=== PATIENT | female | born 1995 | race Caucasian/White ===

== ENCOUNTER → 2020-04-23 12:14 | Outpatient (CLI) | payer OTHER, SELFPAY ==
[2020-04-23 12:55] LABS: COVID19 -Nasal RAPID Negative (Negative)
== END ==
PROVIDERS: PCP Nurse Practitioner Family; Visit Provider Physician Assistant
DX: R05 Cough (principal); Z20.822 Contact with and (suspected) exposure to COVID-19
CPT/HCPCS: 87635

== ENCOUNTER → 2020-08-17 09:14 | Outpatient (CLI) | payer OTHER, SELFPAY ==
[2020-08-17 10:31] LABS: Hematocrit 37.1 % (36-46); Hemoglobin 12.1 g/dL (12.0-16.0); Mean Corpuscular HGB Conc 32.7 % (30-36); Mean Corpuscular Hemoglobin 26.6 PG (26-34); Mean Corpuscular Volume 81.4 fL (80-100); Platelet Count 488 X10^3/uL (150-400); Red Blood Cell Count 4.56 X10^6/uL (4.0-5.2); Red Cell Distribution Width 13.5 % (11.6-14.8); White Blood Cell Count 7.8 X10^3/uL (4.5-11.0)
[2020-08-17 10:47] LABS: Alanine Aminotransferase 15 IU/L (<35); Albumin 4.2 g/dL (3.5-5.0); Albumin Globulin Ratio 1.3 (1.0-2.8); Alkaline Phosphatase 77 U/L (38-126); Aspartate Aminotransferase 24 IU/L (14-36); BUN Creatinine Ratio 22.7 (6-22); Bilirubin Total 0.4 mg/dL (0.2-1.3); Blood Urea Nitrogen 10 mg/dL (7-17); Calcium 9.5 mg/dL (8.4-10.2); Carbon Dioxide 26 mmol/L (22-32); Chloride 102 mmol/L (98-107); Cholesterol 160 mg/dL (140-199); Estimated Glomerular Filt Rate > 60.0 mL/min (>60); Globulin 3.3 g/dL (1.7-4.1); Glucose 91 mg/dL (70-100); HDL Cholesterol 55 mg/dL (40-60); HEMOLYSIS < 15 (0-50); LDL Cholesterol Calculated 60 mg/dL (<100); Sodium 137 mmol/L (137-145); Total Protein 7.5 g/dL (6.3-8.2); Triglycerides 226 mg/dL (35-150)
[2020-08-17 11:12] LABS: TSH w/ Reflex to FT4 0.69 uIU/mL (0.47-4.68)
[2020-08-18 17:18] LABS: RBC Morphology Normal Morphology
[2020-08-18 17:19] LABS: Platelet Estimate Increased on smear
== END ==
PROVIDERS: PCP Nurse Practitioner Family; Referring Provider Nurse Practitioner Family; Visit Provider Nurse Practitioner Family
DX: F32.9 Major depressive disorder, single episode, unspecified (principal); F41.9 Anxiety disorder, unspecified; Z00.00 Encounter for general adult medical examination without abnormal findings; Z13.6 Encounter for screening for cardiovascular disorders
CPT/HCPCS: 36415; 80053; 80061; 84443; 85027

== ENCOUNTER 2020-08-22 03:50 | Emergency (ER) | payer OTHER, SELFPAY ==
[2020-08-22 04:01] VITALS: BP 150/96; PULSE 96; RESP 20; TEMP 36.6; O2SAT 99; BMI 40.7
[2020-08-22] MEDS: SODIUM CHLORIDE 0.9% 1,000 ML 1000 ML IV (04:21)
[2020-08-22] MEDS: HYDROMORPHONE 0.5 MG INJ IV (04:21)
[2020-08-22] MEDS: ONDANSETRON 4 MG/2 ML INJ IV (04:22)
--- NOTE | 2020-08-22 04:22 | ED.GENADULT ---
HPI - General Adult General Chief complaint: Abdominal Pain Stated complaint: mid to upper back pain/abdominal pain right side Time Seen by Provider: 08/22/20 04:01 Source: patient and family Mode of arrival: Ambulatory Limitations: no limitations History of Present Illness HPI narrative: 24-year-old woman with a history of depression presents with sharp right upper quadrant abdominal pain that awoke her from sleep at 11:00 p.m. last night. She describes it as tight with a bandlike aspect along the entire lower portion of her chest. She has no midline thoracic tenderness. She is nauseated secondary to the severity of the pain. She describes no fevers or chills notes that her last bowel movement was normal and last night. She describes no headaches no skin changes and states she has had similar episodes of pain never quite like this and always resolves without additional intervention. She also notes that she did eat some ice cream last night and does have a history of lactose intolerance. She has taken ibuprofen and Tylenol to no effect this evening. Related Data Home Medications Medication Instructions Recorded Confirmed drospirenone 3 mg-ethinyl 1 tab PO DAILY 08/17/20 09/01/20 estradiol 0.02 mg tablet hydroxyzine HCl 25 mg tablet 25 mg PO QID PRN 08/17/20 09/01/20 Previous Rx's Medication Instructions Recorded venlafaxine 37.5 mg 37.5 mg PO DAILY #90 cap 08/17/20 capsule,extended release 24 hr cyclobenzaprine 10 mg PO TID PRN #10 tab 08/24/20 hydrocodone-acetaminophen 1 tab PO Q4-6H PRN #14 tab 08/31/20 ondansetron 4 mg PO Q6H PRN #20 tab 08/31/20 Allergies Allergy/AdvReac Type Severity Reaction Status Date / Time No Known Drug Allergies Allergy Verified 09/01/20 13:26 Review of Systems Review of Systems Narrative: Remainder of complete review of systems is otherwise unremarkable except for that included in the HPI. Patient History Medical History Acne (~2014) Anxiety (~2019) Depression (~2018) No active medical problems Plantar warts (~2017) Thrombocytosis Surgical History Anesthesia [place] teeth removed (~03/22/19) Family History Father Chronic back pain Hyperlipidemia Hypertension Mother Hypertension Brother Cerebral palsy Grandmother Colon cancer History of heart disease Hypertension Stroke Grandfather COPD (chronic obstructive pulmonary disease) Grandmother Diabetes mellitus Mental health problem Social History (Updated 09/01/20 @ 13:29 by Cat Earl RN) marital status: unknown household members: family occupational status: employed Smoking Status: Never smoker second hand exposure: Yes alcohol intake: current (1x/week) substance use type: does not use Smoking Status: Never smoker alcohol intake frequency: holidays/special occasions only Substance Use Type: does not use Exam Narrative Exam Narrative: General: Healthy appearing, in moderate distress. Able to give a complete and coherent history. Well-nourished well-developed HEENT: Moist mucous membranes, normal sclera with reactive pupils, Respiratory: Lungs are clear to auscultation, no wheezing no rales no rhonchi. Full and symmetrical air movement Cardiac: Regular rate and rhythm no murmurs no bruits Abdomen: Soft, right upper quadrant tenderness that radiates to the right mid axillary line. No rebound or guarding, good bowel tones, no flank pain Skin: Warm and dry, no rashes Neurologic: Grossly neurologically intact with no obvious asymmetries or abnormalities Extremities: No trauma, well perfused Psych: Cooperative, appropriate insight and affect Initial Vital Signs Initial Vital Signs: Vital Signs Temperature 97.8 F 08/22/20 04:01 Pulse Rate 96 H 08/22/20 04:01 Respiratory Rate 20 08/22/20 04:01 Blood Pressure 150/96 H 08/22/20 04:01 Pulse Oximetry 99 08/22/20 04:01 Course Orders Ordered: Discontinued Medications Hydromorphone HCl (Hydromorphone 0.5 Mg Inj) 0.5 mg IV Q15MIN PRN PRN Reason: Pain, Last Admin: 08/22/20 04:21 Dose: 0.5 mg Documented by: JEFF Sodium Chloride (Normal Saline 0.9%) 1,000 mls @ 1,000 mls/hr IV BOLUS ONE Stop: 08/22/20 05:00 Last Infusion: 08/22/20 05:23 Dose: 0 mls/hr Documented by: Admin: 08/22/20 04:21 Dose: 1,000 mls/hr Documented by: JEFF Ondansetron HCl (Ondansetron 4 Mg/2 Ml Inj) 4 mg IV NOW ONE Stop: 08/22/20 04:02 Last Admin: 08/22/20 04:22 Dose: 4 mg Documented by: JEFF Vital Signs Vital signs: Vital Signs - 8 hr 08/22/20 04:01 Temperature 97.8 F Pulse Rate 96 H Respiratory Rate 20 Blood Pressure 150/96 H Pulse Oximetry 99 Medical Decision Making Lab Data Lab results reviewed: Yes I reviewed the patient's lab results. Result diagrams: 08/22/20 04:15 08/22/20 04:15 Labs: Lab Results 08/22/20 08/22/20 Range/Units 04:15 04:15 WBC 10.7 (4.5-11.0) X10^3/uL RBC 4.59 (4.0-5.2) X10^6/uL Hgb 12.6 (12.0-16.0) g/dL Hct 37.1 (36-46) % MCV 80.8 (80-100) fL MCH 27.5 (26-34) PG MCHC 34.0 (30-36) % RDW 13.3 (11.6-14.8) % Plt Count 496 H (150-400) X10^3/uL Neut % (Auto) 79.8 H (50-75) % Lymph % (Auto) 13.4 L (25-40) % [place] % (Auto) 5.0 (3-14) % Eos % (Auto) 1.0 L (2-4) % Baso % (Auto) 0.8 (0-2) % Neut # (Auto) 8500 H (4451-6886) /uL Lymph # (Auto) 1400 (8992-8589) /uL [place] # (Auto) 500 (0-900) /uL Eos # (Auto) 100 (0-450) /uL Baso # (Auto) 100 (0-100) /uL Sodium 138 (137-145) mmol/L Potassium 4.1 (3.4-5.1) mmol/L Chloride 104 (98-107) mmol/L Carbon Dioxide 23 (22-32) mmol/L BUN 10 (7-17) mg/dL Creatinine 0.47 L (0.52-1.04) mg/dL Estimated GFR > 60.0 (>60) mL/min BUN/Creatinine Ratio 21.3 (6-22) Glucose 111 H (70-100) mg/dL Calcium 9.7 (8.4-10.2) mg/dL Total Bilirubin 0.3 (0.2-1.3) mg/dL AST 20 (14-36) IU/L ALT 18 (<35) IU/L Alkaline Phosphatase 85 (38-126) U/L Total Protein 7.5 (6.3-8.2) g/dL Albumin 4.1 (3.5-5.0) g/dL Globulin 3.4 (1.7-4.1) g/dL Albumin/Globulin Ratio 1.2 (1.0-2.8) Lipase 45 (23-300) U/L Urine Dip Bedside Urine Glucose Negative Bedside Urine Bilirubin - Negative Bedside Urine Ketone - Negative Urine Specific [place] 1.010 Bedside Urine Occult Blood - Negative Bedside Urine pH 7.0 Bedside Urine Protein - Negative Bedside Urine Urobilinogen +/- 1mg Bedside Urine Nitrite - Negative Bedside Urine Leukocytes - Negative Esterase Point of care testing: Urine Dip Bedside Urine Glucose Negative Bedside Urine Bilirubin - Negative Bedside Urine Ketone - Negative Urine Specific [place] 1.010 Bedside Urine Occult Blood - Negative Bedside Urine pH 7.0 Bedside Urine Protein - Negative Bedside Urine Urobilinogen +/- 1mg Bedside Urine Nitrite - Negative Bedside Urine Leukocytes - Negative Esterase Imaging Data Abdominal ultrasound: Radiologist's Impression: Per tech: No cholecystitis or cholelithiasis. She does have a fatty gallbladder but otherwise abdominal ultrasound is unremarkable. [facility] Narrative Medical decision making narrative: 24-year-old woman with recurrent episodes of right upper abdominal pain radiating through to her back worst today. Labs are reassuring she is feeling somewhat better after fluids and Dilaudid and the pain is now localizing only to the right upper quadrant with the back pain resolved. Ultrasound of the abdomen is ordered Ultrasound does not show significant pathology. On re-evaluation pain is somewhat improved. At this point there is no evidence of significant infection, cholecystitis or cholelithiasis. No suggestion for abdominal obstruction, renal pathology. At this point she is safe for home discharge will recommend that she follow-up with her primary care physician and may benefit from outpatient HIDA study to assess gallbladder function overall. Discharge Plan Departure Patient Disposition: Home Clinical Impression: Abdominal pain Qualifiers: Abdominal location: right upper quadrant Qualified Code(s): R10.11 - Right upper quadrant pain Instructions: DI for Acute Abdominal Pain Activity Restrictions/Additional Instructions: Thank you for coming in today Your workup was very reassuring. Your blood work was normal. There is no evidence of acute gallbladder disease or gallstones. Your ultrasound was also reassuring. I am going to send you home with a small course of narcotics to use for the severe abdominal pain when you experience it. I would recommend eating as low fat diet as your able to tolerate. I still suspect that this is your gallbladder that is causing the pain. Your gallbladder helps you digest fat so the less fat you eat, the less your gallbladder has to work. The next step in your workup will be to follow-up with your primary care physician. Your physician may recommend an outpatient HIDA study which is a nuclear medicine study to look at gallbladder function. If you feel that you are getting worse come your developing fever or vomiting or diarrhea please feel free to return to the ER for further evaluation. Prescriptions: No Action hydroxyzine HCl 25 mg tablet 25 mg PO QID PRNRF: 0 drospirenone-ethinyl estradiol [GINA (28)] 3-0.02 mg tablet 1 tab PO DAILY RF: 0 venlafaxine 37.5 mg capsule,extended release 24hr 37.5 mg PO DAILY Qty: 90 RF: 3 ondansetron 4 mg tablet,disintegrating 4 mg PO Q6H PRN (Reason: nausea and vomiting) Qty: 20 RF: 0 hydrocodone-acetaminophen 5-325 mg tablet 1 tab PO Q4-6H PRN (Reason: pain) Qty: 14 RF: 0 cyclobenzaprine 10 mg tablet 10 mg PO TID PRN (Reason: muscle spasm) Qty: 10 RF: 0 Referrals: Julián Mcknight ARNP [Primary Care Provider] - Stand Alone Forms: Work Release Note
[2020-08-22 04:26] LABS: Add Manual Diff / Slide Review NO; Basophils Absolute Auto 100 /uL (0-100); Basophils Percent Auto 0.8 % (0-2); Eosinophils Absolute Auto 100 /uL (0-450); Hematocrit 37.1 % (36-46); Hemoglobin 12.6 g/dL (12.0-16.0); Lymphocytes Absolute Auto 1400 /uL (1100-4500); Lymphocytes Percent Auto 13.4 % (25-40); Mean Corpuscular Hemoglobin 27.5 PG (26-34); Mean Corpuscular Volume 80.8 fL (80-100); Monocytes Absolute Auto 500 /uL (0-900); Neutrophils Absolute Auto 8500 /uL (1500-7000); Neutrophils Percent Auto 79.8 % (50-75); Platelet Count 496 X10^3/uL (150-400); Red Blood Cell Count 4.59 X10^6/uL (4.0-5.2); Red Cell Distribution Width 13.3 % (11.6-14.8); White Blood Cell Count 10.7 X10^3/uL (4.5-11.0)
[2020-08-22 04:31] LABS: Alanine Aminotransferase 18 IU/L (<35); Albumin 4.1 g/dL (3.5-5.0); Albumin Globulin Ratio 1.2 (1.0-2.8); Alkaline Phosphatase 85 U/L (38-126); Aspartate Aminotransferase 20 IU/L (14-36); BUN Creatinine Ratio 21.3 (6-22); Bilirubin Total 0.3 mg/dL (0.2-1.3); Blood Urea Nitrogen 10 mg/dL (7-17); Calcium 9.7 mg/dL (8.4-10.2); Carbon Dioxide 23 mmol/L (22-32); Chloride 104 mmol/L (98-107); Estimated Glomerular Filt Rate > 60.0 mL/min (>60); Globulin 3.4 g/dL (1.7-4.1); Glucose 111 mg/dL (70-100); HEMOLYSIS < 15 (0-50); Lipase 45 U/L (23-300); Potassium 4.1 mmol/L (3.4-5.1); Sodium 138 mmol/L (137-145); Total Protein 7.5 g/dL (6.3-8.2)
--- NOTE | 2020-08-22 05:28 | DI.US.S_ITS ---
PROCEDURE: US ABDOMEN LIMITED INDICATIONS: RUQ PAIN TECHNIQUE: Real-time focused scanning was performed of the abdomen, with image documentation. COMPARISON: None. FINDINGS: Liver is normal in size. Liver is mildly echogenic. No focal hepatic mass lesions. Gallbladder is sonographically normal. No gallstones. No gallbladder wall thickening. Gallbladder wall measures 2.2 millimeters No pericholecystic fluid. No sonographic Wilson sign. Biliary tree is nondilated. Common bile duct measures 6.1 millimeters. Pancreas is sonographically normal. IMPRESSION: 1. No sonographic evidence cholelithiasis or cholecystitis. If there is continued clinical concern for cholecystitis, a nuclear medicine HIDA scan should be considered for further evaluation. 2. Echogenic liver. Finding typically represents fatty infiltration; however, finding is nonspecific and correlation with clinical and laboratory findings is recommended to exclude other etiologies including hepatic cirrhosis. Dictated by: Denisse Harris MD, PhD on 08/22/2020 at 7:15 Approved by: Denisse Harris MD, PhD on 08/22/2020 at 7:17
[2020-08-22 07:41] VITALS: BP 138/82; PULSE 88; RESP 16; O2SAT 98
== END 2020-08-22 07:41 | disposition home or self-care (01) ==
PROVIDERS: Emergency Provider Emergency Medicine; PCP Nurse Practitioner Family
DX: R10.11 Right upper quadrant pain (principal); R11.0 Nausea
CPT/HCPCS: 36415; 76705; 80053; 81003; 83690; 85025; 96361; 96374; 96375; 99284; J1170; J2405

== ENCOUNTER 2020-08-24 14:28 | Emergency (ER) | payer OTHER, SELFPAY ==
[2020-08-24 14:38] VITALS: BP 158/93; PULSE 96; RESP 16; TEMP 37.1; O2SAT 98; BMI 41.5
[2020-08-24 15:40] LABS: Add Manual Diff / Slide Review NO; Basophils Absolute Auto 100 /uL (0-100); Basophils Percent Auto 0.9 % (0-2); Eosinophils Absolute Auto 200 /uL (0-450); Eosinophils Percent Auto 1.3 % (2-4); Hematocrit 37.2 % (36-46); Hemoglobin 12.6 g/dL (12.0-16.0); Lymphocytes Absolute Auto 2200 /uL (1100-4500); Mean Corpuscular HGB Conc 33.9 % (30-36); Mean Corpuscular Hemoglobin 27.3 PG (26-34); Mean Corpuscular Volume 80.6 fL (80-100); Monocytes Absolute Auto 600 /uL (0-900); Monocytes Percent Auto 5.1 % (3-14); Neutrophils Absolute Auto 8600 /uL (1500-7000); Neutrophils Percent Auto 73.7 % (50-75); Platelet Count 503 X10^3/uL (150-400); Red Blood Cell Count 4.62 X10^6/uL (4.0-5.2); Red Cell Distribution Width 13.1 % (11.6-14.8); White Blood Cell Count 11.7 X10^3/uL (4.5-11.0)
[2020-08-24 16:11] LABS: Alanine Aminotransferase 16 IU/L (<35); Albumin 4.3 g/dL (3.5-5.0); Albumin Globulin Ratio 1.3 (1.0-2.8); Alkaline Phosphatase 73 U/L (38-126); Aspartate Aminotransferase 32 IU/L (14-36); BUN Creatinine Ratio 21.1 (6-22); Bilirubin Total 0.6 mg/dL (0.2-1.3); Blood Urea Nitrogen 8 mg/dL (7-17); Calcium 9.6 mg/dL (8.4-10.2); Carbon Dioxide 25 mmol/L (22-32); Chloride 101 mmol/L (98-107); Estimated Glomerular Filt Rate > 60.0 mL/min (>60); Globulin 3.4 g/dL (1.7-4.1); Glucose 137 mg/dL (70-100); HEMOLYSIS 33 (0-50); Lipase 39 U/L (23-300); Potassium 3.7 mmol/L (3.4-5.1); Sodium 136 mmol/L (137-145); Total Protein 7.7 g/dL (6.3-8.2)
[2020-08-24] MEDS: SODIUM CHLORIDE 0.9% 1,000 ML 1000 ML IV (16:48)
[2020-08-24] MEDS: ONDANSETRON 4 MG/2 ML INJ IV (16:48)
[2020-08-24] MEDS: MORPHINE 4 MG/ML INJ IV (16:48)
--- NOTE | 2020-08-24 17:03 | ED.GENADULT ---
HPI - General Adult General Chief complaint: Abdominal Pain Stated complaint: Dizzy, Back Pain, Sent From PCP Time Seen by Provider: 08/24/20 16:45 Source: patient Mode of arrival: Wheelchair Limitations: no limitations History of Present Illness HPI narrative: Patient is a 24-year-old female was sent from her primary doctor's office for evaluation back pain and abdominal pain feeling dizzy. She was seen here in the emergency department a couple days ago for abdominal discomfort. She had a workup during that time to include labs and an ultrasound which showed a normal gallbladder. She states that her abdominal discomfort that brought her into the emergency department that day has completely resolved however she has right-sided back discomfort. She states she becomes dizzy when she gets the pain. It is worse to touch. Related Data Home Medications Medication Instructions Recorded Confirmed drospirenone 3 mg-ethinyl 1 tab PO DAILY 08/17/20 08/24/20 estradiol 0.02 mg tablet hydroxyzine HCl 25 mg tablet 25 mg PO QID PRN 08/17/20 08/24/20 Previous Rx's Medication Instructions Recorded venlafaxine 37.5 mg 37.5 mg PO DAILY #90 cap 08/17/20 capsule,extended release 24 hr cyclobenzaprine 10 mg PO TID PRN #10 tab 08/24/20 Allergies Allergy/AdvReac Type Severity Reaction Status Date / Time No Known Drug Allergies Allergy Verified 08/24/20 14:40 Review of Systems Constitutional Constitutional: Denies fever(s) ENT Ears, Nose, Mouth, and Throat: Reports dizziness Cardiovascular Cardiovascular: Reports system reviewed and no additional complaints, except as documented Respiratory Respiratory: Reports system reviewed and no additional complaints, except as documented Gastrointestinal Gastrointestinal: Denies abdominal pain Genitourinary Genitourinary: Reports system reviewed and no additional complaints, except as documented Musculoskeletal Musculoskeletal: Reports back pain Integumentary/Breasts Skin/Breast: Denies rash Neurologic Neurologic: Reports dizziness Psychiatric Psychiatric: Reports system reviewed and no additional complaints, except as documented Hematologic/Lymphatic On Anticoagulants: No Allergic/Immunologic Allergic/Immunologic: Reports system reviewed and no additional complaints, except as documented Patient History Medical History Acne (~2014) Anxiety (~2019) Depression (~2018) No active medical problems Plantar warts (~2017) Thrombocytosis Surgical History Anesthesia [place] teeth removed (~03/22/19) Family History Father Chronic back pain Hyperlipidemia Hypertension Mother Hypertension Brother Cerebral palsy Grandmother Colon cancer History of heart disease Hypertension Stroke Grandfather COPD (chronic obstructive pulmonary disease) Grandmother Diabetes mellitus Mental health problem Social History Smoking Status: Never smoker second hand exposure: Yes alcohol intake: current (1x/week) substance use type: does not use Smoking Status: Never smoker alcohol intake frequency: holidays/special occasions only Substance Use Type: does not use Exam Initial Vital Signs Initial Vital Signs: Vital Signs Temperature 98.7 F 08/24/20 14:38 Pulse Rate 96 H 08/24/20 14:38 Respiratory Rate 16 08/24/20 14:38 Blood Pressure 158/93 H 08/24/20 14:38 Pulse Oximetry 98 08/24/20 14:38 Const General: cooperative Limitations: mental status not altered HENMT Head: normal to inspection and normocephalic Resp Effort & Inspection: normal respiratory effort Auscultation: clear to auscultation bilaterally Cardio Rate: regular rate Rhythm: regular rhythm GI Inspection: non-distended Palpation: soft and No tender Back/Spine/Pelvis Other: Right-sided thoracolumbar paraspinal discomfort. Skin Lesions: no lesions Rashes: no rashes Neuro General: patient alert and patient awake Extrem General: capillary refill normal Psych Appearance: grossly normal Course Orders Ordered: Discontinued Medications Sodium Chloride (Normal Saline 0.9%) 1,000 mls @ 1,000 mls/hr IV BOLUS ONE Stop: 08/24/20 17:37 Last Infusion: 08/24/20 18:18 Dose: 0 mls/hr Documented by: MIGUEL ÁNGEL Admin: 08/24/20 16:48 Dose: 1,000 mls/hr Documented by: MIGUEL ÁNGEL Morphine Sulfate (Morphine 4 Mg/Ml Inj) 4 mg IV NOW ONE Stop: 08/24/20 16:46 Last Admin: 08/24/20 16:48 Dose: 4 mg Documented by: MIGUEL ÁNGEL Ondansetron HCl (Ondansetron 4 Mg/2 Ml Inj) 4 mg IV NOW ONE Stop: 08/24/20 16:46 Last Admin: 08/24/20 16:48 Dose: 4 mg Documented by: MIGUEL ÁNGEL Vital Signs Vital signs: Vital Signs - 8 hr 08/24/20 14:38 Temperature 98.7 F Pulse Rate 96 H Respiratory Rate 16 Blood Pressure 158/93 H Pulse Oximetry 98 Medical Decision Making Lab Data Lab results reviewed: Yes I reviewed the patient's lab results. Result diagrams: 08/24/20 15:30 08/24/20 15:30 Labs: Lab Results 08/24/20 08/24/20 Range/Units 15:30 15:30 WBC 11.7 H (4.5-11.0) X10^3/uL RBC 4.62 (4.0-5.2) X10^6/uL Hgb 12.6 (12.0-16.0) g/dL Hct 37.2 (36-46) % MCV 80.6 (80-100) fL MCH 27.3 (26-34) PG MCHC 33.9 (30-36) % RDW 13.1 (11.6-14.8) % Plt Count 503 H (150-400) X10^3/uL Neut % (Auto) 73.7 (50-75) % Lymph % (Auto) 19.0 L (25-40) % [place] % (Auto) 5.1 (3-14) % Eos % (Auto) 1.3 L (2-4) % Baso % (Auto) 0.9 (0-2) % Neut # (Auto) 8600 H (4992-5432) /uL Lymph # (Auto) 2200 (7760-5212) /uL [place] # (Auto) 600 (0-900) /uL Eos # (Auto) 200 (0-450) /uL Baso # (Auto) 100 (0-100) /uL Sodium 136 L (137-145) mmol/L Potassium 3.7 (3.4-5.1) mmol/L Chloride 101 (98-107) mmol/L Carbon Dioxide 25 (22-32) mmol/L BUN 8 (7-17) mg/dL Creatinine 0.38 L (0.52-1.04) mg/dL Estimated GFR > 60.0 (>60) mL/min BUN/Creatinine Ratio 21.1 (6-22) Glucose 137 H (70-100) mg/dL Calcium 9.6 (8.4-10.2) mg/dL Total Bilirubin 0.6 (0.2-1.3) mg/dL AST 32 (14-36) IU/L ALT 16 (<35) IU/L Alkaline Phosphatase 73 (38-126) U/L Total Protein 7.7 (6.3-8.2) g/dL Albumin 4.3 (3.5-5.0) g/dL Globulin 3.4 (1.7-4.1) g/dL Albumin/Globulin Ratio 1.3 (1.0-2.8) Lipase 39 (23-300) U/L Point of Care Testing Test Results Negative Urine Dip Bedside Urine Glucose Negative Bedside Urine Bilirubin - Negative Bedside Urine Ketone - Negative Urine Specific [place] 1.015 Bedside Urine Occult Blood - Negative Bedside Urine pH 7.0 Bedside Urine Protein - Negative Bedside Urine Urobilinogen - Negative Bedside Urine Nitrite - Negative Bedside Urine Leukocytes - Negative Esterase Point of care testing: Point of Care Testing Test Results Negative Urine Dip Bedside Urine Glucose Negative Bedside Urine Bilirubin - Negative Bedside Urine Ketone - Negative Urine Specific [place] 1.015 Bedside Urine Occult Blood - Negative Bedside Urine pH 7.0 Bedside Urine Protein - Negative Bedside Urine Urobilinogen - Negative Bedside Urine Nitrite - Negative Bedside Urine Leukocytes - Negative Esterase Imaging Data CT scan - abdomen/pelvis: Radiologist's Impression: [address] [id number] Scan ReportSigned Patient: Negar Ramirez [facility]#: [id number]: 1995Acct:[id number]/Sex: 24 / FDate of Service: 08/24/20Loc: EDAccession Number: [id number] Procedure: CT abdomen pelvis w con Ordering Provider: Matty Galarza D.O. PROCEDURE: CT ABDOMEN PELVIS W CON INDICATIONS: Generalized abdominal pain TECHNIQUE: After the administration of intravenous contrast, 5 mm thick sections acquired from the diaphragm to the symphysis. 5 mm coronal and sagittal reformats were acquired. For radiation dose reduction, the following was used: automated exposure control, adjustment of mA and/or kV according to patient size. COMPARISON: None. FINDINGS: Image quality: Excellent. ABDOMEN: Lung bases: Lung bases are clear. Heart size is normal. Solid organs: Hepatomegaly. Mild diffuse hepatic steatosis. Gallbladder is surgically absent.. Biliary system is non dilated. Pancreas enhances normally. Spleen is normal in size and enhancement. No adrenal nodules. Kidneys demonstrate normal size and enhancement, without hydronephrosis. Peritoneum and bowel: Bowel loops demonstrate normal wall thickness and caliber. No free fluid or air. Nodes and vessels: No retroperitoneal or mesenteric adenopathy by size criteria. Aorta and inferior vena cava are normal in size. Miscellaneous: No ventral hernias. PELVIS: Genitourinary: Bladder wall thickness is normal. Miscellaneous: No inguinal hernias or adenopathy. Bones: No suspicious bony lesions. No vertebral body compression fractures. IMPRESSION: 1. Hepatomegaly, mild diffuse hepatic steatosis. 2. Remote cholecystectomy. 3. No evidence of acute abdominal process. Dictated by: Yordan Cole M.D. on 08/24/2020 at 17:37 Approved by: Yordan Cole M.D. on 08/24/2020 at 17:40 MDM Narrative Medical decision making narrative: Her labs today are reassuring. She has had a right upper quadrant ultrasound which showed a normal gallbladder. CT scan today also unremarkable. Unsure the exact etiology however I was able to reproduce the back discomfort with palpation along the right-sided thoracolumbar paraspinal muscles. There is no skin changes over the area that would make me be concern for zoster. She is afebrile. Low suspicion for an infectious/surgical etiology. Will discharge patient to follow back up with her primary provider. She was given return precautions. She expressed understanding and agreement. Discharge Plan Departure Patient Disposition: Home Clinical Impression: Back pain Instructions: Low Back Pain Activity Restrictions/Additional Instructions: Recommend that you contact your primary doctor for follow-up. Your workup here in the emergency department has been very reassuring without signs of any surgical or infectious problem. Return to the emergency department for any new or worsening symptoms Prescriptions: New cyclobenzaprine 10 mg tablet 10 mg PO TID PRN (Reason: muscle spasm) Qty: 10 RF: 0 No Action hydroxyzine HCl 25 mg tablet 25 mg PO QID PRNRF: 0 drospirenone-ethinyl estradiol [GINA (28)] 3-0.02 mg tablet 1 tab PO DAILY RF: 0 venlafaxine 37.5 mg capsule,extended release 24hr 37.5 mg PO DAILY Qty: 90 RF: 3 Referrals: Julián Mcknight ARNP [Primary Care Provider] - Stand Alone Forms: Work Release Note
[2020-08-24 17:06] VITALS: O2SAT 93
[2020-08-24 17:30] VITALS: O2SAT 96
[2020-08-24 17:31] VITALS: BP 105/84; PULSE 94; RESP 15; O2SAT 99
== END 2020-08-24 18:24 | disposition home or self-care (01) ==
PROVIDERS: Emergency Provider Emergency Medicine; PCP Nurse Practitioner Family
DX: M54.9 Dorsalgia, unspecified (principal); R42 Dizziness and giddiness; R10.9 Unspecified abdominal pain
CPT/HCPCS: 36415; 74177; 80053; 81003; 81025; 83690; 85025; 96361; 96374; 96375; 99284; J2270; J2405

== ENCOUNTER 2020-08-31 00:41 | Emergency (ER) | payer OTHER, SELFPAY ==
[2020-08-31 00:50] VITALS: BP 138/87; PULSE 87; RESP 17; TEMP 36.9; O2SAT 100; BMI 41.5
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
[2020-08-31] MEDS: SODIUM CHLORIDE 0.9% 1,000 ML 1000 ML IV (02:24)
[2020-08-31] MEDS: ONDANSETRON 4 MG/2 ML INJ IV (02:25)
[2020-08-31] MEDS: HYDROMORPHONE 1 MG INJ IV (02:25)
[2020-08-31] MEDS: PANTOPRAZOLE 40 MG VIAL IV (02:25)
[2020-08-31 02:28] LABS: Add Manual Diff / Slide Review NO; Basophils Absolute Auto 100 /uL (0-100); Basophils Percent Auto 0.5 % (0-2); Eosinophils Absolute Auto 200 /uL (0-450); Eosinophils Percent Auto 1.4 % (2-4); Hematocrit 38.5 % (36-46); Hemoglobin 12.4 g/dL (12.0-16.0); Lymphocytes Absolute Auto 1800 /uL (1100-4500); Lymphocytes Percent Auto 15.9 % (25-40); Mean Corpuscular HGB Conc 32.3 % (30-36); Mean Corpuscular Hemoglobin 26.4 PG (26-34); Mean Corpuscular Volume 81.9 fL (80-100); Monocytes Absolute Auto 800 /uL (0-900); Neutrophils Absolute Auto 8300 /uL (1500-7000); Neutrophils Percent Auto 75.2 % (50-75); Platelet Count 469 X10^3/uL (150-400); Red Cell Distribution Width 13.4 % (11.6-14.8)
[2020-08-31 02:30] LABS: Pregnancy Test Serum,Qual Negative (Negative)
[2020-08-31 02:56] LABS: Alanine Aminotransferase 16 IU/L (<35); Albumin 4.3 g/dL (3.5-5.0); Albumin Globulin Ratio 1.2 (1.0-2.8); Alkaline Phosphatase 79 U/L (38-126); Aspartate Aminotransferase 30 IU/L (14-36); Bilirubin Total 0.5 mg/dL (0.2-1.3); Blood Urea Nitrogen 12 mg/dL (7-17); Calcium 9.9 mg/dL (8.4-10.2); Carbon Dioxide 22 mmol/L (22-32); Chloride 104 mmol/L (98-107); Estimated Glomerular Filt Rate > 60.0 mL/min (>60); Globulin 3.6 g/dL (1.7-4.1); Glucose 113 mg/dL (70-100); HEMOLYSIS < 15 (0-50); Lipase 56 U/L (23-300); Sodium 137 mmol/L (137-145); Total Protein 7.9 g/dL (6.3-8.2)
--- NOTE | 2020-08-31 04:14 | DI.NM.S_ITS ---
PROCEDURE: NM HIDA NO EJECTION FRACTION RADIOPHARMACEUTICAL: 5.4 mCi Tc-99m mebrofenin IV. INDICATIONS: Abdominal pain TECHNIQUE: Following intravenous administration of Tc-99m mebrofenin, sequential anterior abdominal images were obtained through at least 60 minutes. 4 milligrams intravenous morphine administered at 60 minutes post radiotracer administration and additional 30 minutes of images were obtained. COMPARISON: [facility], US, US ABDOMEN LIMITED, 08/22/2020, 6:41. [facility], CT, CT ABDOMEN PELVIS W CON, 08/24/2020, 17:10. FINDINGS: There is normal tracer uptake and excretion by the liver. There is normal visualization of intrahepatic ducts and common bile duct. There is normal tracer excretion into duodenum. The gallbladder was visualized approximately 15 minutes following administration of morphine. IMPRESSION: Delayed gallbladder visualization concerning for chronic acalculous cholecystitis. Dictated by: Denisse Harris MD, PhD on 08/31/2020 at 12:59 Approved by: Denisse Harris MD, PhD on 08/31/2020 at 13:09
[2020-08-31 07:41] VITALS: BP 143/87; PULSE 91; RESP 18; TEMP 36.8; O2SAT 100
[2020-08-31] MEDS: MORPHINE 4 MG/ML INJ IV (12:24)
[2020-08-31 12:29] VITALS: BP 120/70; PULSE 80
[2020-08-31 13:39] VITALS: BP 149/86; PULSE 101; RESP 16; O2SAT 99
== END 2020-08-31 13:56 | disposition home or self-care (01) ==
PROVIDERS: Emergency Medicine; Emergency Provider Emergency Medicine; PCP Nurse Practitioner Family
DX: R10.11 Right upper quadrant pain (principal)
CPT/HCPCS: 36415; 78226; 80053; 83690; 84703; 85025; 96361; 96374; 96375; 99284; A9537; C9113; J1170; J2270; J2405

== ENCOUNTER → 2020-09-05 08:03 | Outpatient (CLI) | payer OTHER, SELFPAY ==
--- NOTE | 2020-09-05 08:06 | DI.US.S_ITS ---
PROCEDURE: US ABDOMEN LIMITED INDICATIONS: RIGHT UPPER QUADRANT PAIN/NAUSEA. ?CHOLECYSTECTOMY TECHNIQUE: Real-time focused scanning was performed of the abdomen, with image documentation. COMPARISON: [facility], , US ABDOMEN LIMITED, 08/22/2020, 6:41. FINDINGS: Liver appears moderately enlarged at 18.7 cm craniocaudad and demonstrates normal morphology but increased echotexture consistent with hepatic steatosis. IMPRESSION: The gallbladder is normal. Hepatic steatosis is noted with mild to moderate hepatomegaly. Bile ducts are not distended, a definite source of current right upper quadrant pain and nausea is not found. Dictated by: Rafita Knight M.D. on 09/05/2020 at 12:36 Approved by: Rafita Knight M.D. on 09/05/2020 at 12:37
== END ==
LOC: US 08:03
PROVIDERS: PCP Nurse Practitioner Family; Referring Provider Specialist; Visit Provider Specialist
DX: R10.11 Right upper quadrant pain (principal); R16.0 Hepatomegaly, not elsewhere classified
CPT/HCPCS: 76705

== ENCOUNTER → 2020-09-14 15:33 | Outpatient (CLI) | payer OTHER, SELFPAY ==
[2020-09-14 16:02] LABS: COVID19 -Nasal RAPID Negative (Negative)
== END ==
PROVIDERS: PCP Nurse Practitioner Family; Referring Provider Specialist; Visit Provider Specialist
DX: Z20.822 Contact with and (suspected) exposure to COVID-19 (principal)
CPT/HCPCS: 87635; C9803

== ENCOUNTER 2020-09-15 10:51 | Day surgery (SDC) | payer OTHER, SELFPAY ==
[2020-09-12 08:11] VITALS: BMI 43.0
[2020-09-15] VITALS (8 sets, daily range): BP systolic 109–137; BP diastolic 65–91; PULSE 70–88; RESP 12–18; TEMP 36.1–36.8; O2SAT 94–99; BMI 43.0
--- NOTE | 2020-09-15 | PATH_ITS ---
[facility] Accession Number: [id number] . 01 Material submitted: . gallbladder - GALLBLADDER . 02 Diagnosis: Gallbladder, Cholecystectomy: Chronic cholecystitis and cholesterolosis. MRV 09/21/2020 1020 Local . 02 Electronically signed: . Sonal Green MD, Pathologist NPI- [id number] . 01 Gross description: . The specimen is received in formalin labeled gallbladder and consists of a 5.6 x 2.2 x 2.0 cm intact gallbladder with a 1.0 cm in diameter disrupted cystic duct. The serosa is carbajal-pink and wrinkled. Opening reveals minimal green viscous bile with no choleliths identified. The mucosa is carbajal-pink, and velvety and the wall thickness measures 0.1 cm. Home Health Lvn sections are submitted, to include the en face cystic duct margin (blue), in cassette A1. ([id number]) /[facility] 09/19/2020 1655 Local . 02 Pathologist provided ICD-10: R10.11, K81.1 . 02 CPT . 826082 Performed at: 01 [facility] [address], [place], [place] [id number] MD Philip Durán MD Phone: [phone] Performed at: 02 [facility] [address] [place], [place] [id number] MD Tanja Pace MD Phone: [phone]
[2020-09-15] MEDS: LACTATED RINGERS 1,000 ML 100 ML IV ×2 (12:00→14:22)
--- NOTE | 2020-09-15 12:20 | SUR.OPER ---
Supine on padded OR bed, head on pillow, safety belt at thigh, left arm padded and tucked at side. Right arm secured on padded arm oard <90 degrees abduction. Legs uncrossed. Padded footboard in place. Tape over blanket to secure lower legs.
--- NOTE | 2020-09-15 12:55 | PM.PREOP ---
Pre-operative Note COVID-19 COVID-19 status: Negative Result date/Date tested (Pos, Neg/Pending): 09/14/20 Interval Note History & Physical reviewed/Exam performed by Physician: Yes Changes to H&P: Yes H&P completed within 30 days and has changed as indicated here:: repeat ultrasound consistent with the first.
[2020-09-15] MEDS: CEFAZOLIN 1 GM VIAL 2 GM IV (13:26)
[2020-09-15] MEDS: BUPIVACAINE 0.5% (PF) VIAL 30 ML INJ (13:33)
--- NOTE | 2020-09-15 15:11 | P.OP_ITS ---
Operative Date/Time/Diagnoses Date of procedure: 09/15/20 Time of procedure: 15:11 Pre-op diagnosis: Possible cholecystitis. Right upper quadrant pain Post-op diagnosis: same (Chronic cholecystitis with small gallstones.) Procedure & Clinicians Procedure: Laparoscopic cholecystectomy Same procedure as scheduled: Yes Indications: Chronic symptoms typical of gallbladder disease with an abnormal HIDA scan Surgeon: Douglas Ashby Click Yes if Unassisted: Yes Anesthesia Type: General Operative Notes Findings: Long narrow gallbladder tapering without definition into the area of the cystic duct. Significant portion of the gallbladder intrahepatic. Tiny stones identified. Tie placed on distal gallbladder. Closure Type: primary Specimen(s): other (Gallbladder) Prosthetic devices, grafts, tissues, transplants, or devices: None Estimated Blood Loss (mL): 5 Blood products transfused: none Procedure in detail: The patient was placed supine on the operating room table and underwent general endotracheal anesthesia. The patient was prepped and draped in the usual fashion. Local anesthetic was infiltrated above the umbilicus and linear incision made and carried down through fascia into the peritoneal cavity. Stay sutures of 0 Vicryl were placed in the fascia. A 12 mm port was placed. The abdomen was insufflated. The patient was repositioned. Local anesthetic was infiltrated in 3 areas under the right costal margin and 3 small incisions made followed by placing 3 5 mm ports under direct laparoscopic camera vision internally. The gallbladder was grasped and elevated. Dissection was begun to find its end. I carefully opened tissues over the distal gallbladder and dissected inferiorly toward the frank. I really could not identify what looked like a cystic duct. The gallbladder had such a long slow taper that I could not identify for certain where the gallbladder ended in the cystic duct began. A significant portion of the gallbladder appeared to be intrahepatic including the distal and near its junction with the common bowel duct. Because of this I decided to dissect the gallbladder out of the bed of the liver from above. I incised the tissues on the surface of the gallbladder adjacent to the liver. Using cautery and blunt dissection I peeled the gallbladder out of the liver bed. This turned out to be a fairly bloodless under taking. There was good visualization and I was confident I had injured no structures. As I made my way down toward the gallbladder cystic duct junction I found that I would have to dissect into the liver parenchyma defined the junction of the cystic duct with the common bowel duct. I could clearly see that were I was working was gallbladder. I could not see where the cystic duct began with the common duct was located at the junction. Because of this I decided not to dissect into the liver but rather place a tie on the distal gallbladder and cinch it down. I did I thin identify an artery going to the gallbladder which I placed 3 clips across and divided leaving 2 in the patient a PDS 1. Loop was placed on the gallbladder as low as possible but in a location that was certain was not tentin Up the cystic duct hepatic duct junction. I cinched it down and transected the gallbladder above it. I prevented spillage by placing a clamp across the gallbladder prior to transecting it. There was not no ongoing bleeding from the gallbladder no leakage of bile. The gallbladder was placed in a bag without spillage in removed without difficulty through the umbilical port. The right upper quadrant was irrigated and suctioned free of fluid. There was no bleeding and no bile drainage. The port sites were all irrigated. The stay sutures at the umbilicus were elevated. A 2 0 PDS suture was placed between them. An additional PDS was needed to it to close the defect. The Vicryl and PDS sutures were then tied. The skin in all areas was closed with interrupted 4 0 Vicryl subcuticular stitches. Steri- Strips and Mastisol were applied. Band-Aids were placed and the patient was awakened, extubated and taken to the recovery area in good condition. Complications: none Post-operative Condition: stable Disposition: PACU
[2020-09-15] MEDS: fentaNYL 100 MCG/2 ML INJ IV (15:21)
== END 2020-09-15 16:10 | disposition home or self-care (01) ==
PROVIDERS: PCP Nurse Practitioner Family; Referring Provider Specialist; Visit Provider Specialist
PROC: 0FT44ZZ Resection of Gallbladder, Percutaneous Endoscopic Approach (ICD-10-PCS; CPT 47562; principal; 2020-09-15 12:15)
DX: K80.10 Calculus of gallbladder with chronic cholecystitis without obstruction (principal); E66.9 Obesity, unspecified; Z68.41 Body mass index [BMI] 40.0-44.9, adult; F41.9 Anxiety disorder, unspecified
CPT/HCPCS: 47562; J0690; J1100; J1885; J2250; J2405; J2704; J3010

== ENCOUNTER 2022-04-24 13:12 | Emergency (ER) | payer OTHER, MEDICAID, SELFPAY ==
[2022-04-24 13:28] VITALS: BP 133/84; PULSE 75; RESP 18; TEMP 36.8; O2SAT 100; BMI 42.5
[2022-04-24] MEDS: ONDANSETRON 4 MG ODT SL (16:07)
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
[2022-04-24] MEDS: KETOROLAC 30 MG/ML VIAL 15 MG IM (16:08)
[2022-04-24] MEDS: HYDROCODONE/ACET 5/325 TABLET 1 TAB PO (16:09)
[2022-04-24 16:28] LABS: Pregnancy Test Urine Negative (Negative)
[2022-04-24 16:29] LABS: Add Manual Diff / Slide Review NO; Basophils Absolute Auto 100 /uL (0-100); Basophils Percent Auto 0.8 % (0-2); Eosinophils Absolute Auto 100 /uL (0-450); Hemoglobin 11.8 g/dL (12.0-16.0); Lymphocytes Absolute Auto 1800 /uL (1100-4500); Lymphocytes Percent Auto 16.7 % (25-40); Mean Corpuscular HGB Conc 33.6 % (30-36); Mean Corpuscular Hemoglobin 26.3 PG (26-34); Mean Corpuscular Volume 78.1 fL (80-100); Monocytes Absolute Auto 700 /uL (0-900); Monocytes Percent Auto 6.9 % (3-14); Neutrophils Absolute Auto 8000 /uL (1500-7000); Neutrophils Percent Auto 74.6 % (50-75); Platelet Count 476 X10^3/uL (150-400); Red Blood Cell Count 4.49 X10^6/uL (4.0-5.2); Red Cell Distribution Width 14.1 % (11.6-14.8); White Blood Cell Count 10.7 X10^3/uL (4.5-11.0)
[2022-04-24 16:37] LABS: Bacteria Urine Few (2-10); RBC Urine None Seen (0-5/HPF); Squamous Epithelial Cell Urine 1-5 /HPF (0-5/HPF); WBC Urine 1-5/HPF (0-5/HPF)
[2022-04-24 16:38] LABS: Culture Indicated Urine Cult Not Indicated
[2022-04-24 16:40] LABS: Alanine Aminotransferase 20 IU/L (<35); Albumin 4.4 g/dL (3.5-5.0); Albumin Globulin Ratio 1.2 (1.0-2.8); Alkaline Phosphatase 83 U/L (38-126); Aspartate Aminotransferase 20 IU/L (14-36); BUN Creatinine Ratio 10.5 (6-22); Bilirubin Total 0.7 mg/dL (0.2-1.3); Blood Urea Nitrogen 6 mg/dL (7-17); Calcium 9.2 mg/dL (8.4-10.2); Carbon Dioxide 30 mmol/L (22-32); Chloride 98 mmol/L (98-107); Estimated Glomerular Filt Rate > 60 mL/min (>60); Globulin 3.6 g/dL (1.7-4.1); Glucose 104 mg/dL (70-100); HEMOLYSIS < 15 (0-50); Lipase 50 U/L (23-300); Potassium 3.2 mmol/L (3.4-5.1); Sodium 140 mmol/L (137-145)
[2022-04-24 16:52] LABS: Lactate (Lactic Acid) 1.3 mmol/L (0.7-2.1)
[2022-04-24 16:55] LABS: C-Reactive Protein Quant 1.1 mg/dL (<1.0)
[2022-04-24] MEDS: metroNIDAZOLE 500 MG TABLET PO (17:12)
[2022-04-24] MEDS: cefTRIAXone 1,000 MG VIAL 500 MG IM (17:21)
[2022-04-24] MEDS: LIDOCAINE 1% (PF) 5 ML 2.1 ML INJ (17:22)
--- NOTE | 2022-04-24 17:23 | PC.NURSE ---
Pharmacy mixed the lido+ceftriaxone injection. See MAR.
[2022-04-24 17:31] VITALS: PULSE 80; RESP 18; O2SAT 99
[2022-04-24 17:51] LABS: Urine N gonorrhoeae NOT DETECTED
[2022-04-24 17:52] LABS: Urine Chlamydia NOT DETECTED
== END 2022-04-24 17:36 | disposition home or self-care (01) ==
PROVIDERS: Emergency Medicine; Emergency Provider Nurse Practitioner Critical Care Medicine; PCP Physician Assistant
DX: N76.0 Acute vaginitis (principal); E87.6 Hypokalemia
CPT/HCPCS: 80053; 81003; 81015; 81025; 83605; 83690; 85025; 86140; 87210; 87491; 87591; 96372; 99284; J0696; J1885

== ENCOUNTER 2022-08-21 13:50 | Emergency (ER) | payer OTHER, MEDICAID, SELFPAY ==
[2022-08-21 13:59] VITALS: BP 137/87; PULSE 69; RESP 16; TEMP 36.2; O2SAT 100; BMI 42.3
[2022-08-21] MEDS: ACETAMINOPHEN 325 MG TABLET 650 MG PO (15:50)
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
[2022-08-21 16:23] VITALS: BP 135/77; PULSE 76; RESP 16; O2SAT 96
== END 2022-08-21 16:54 | disposition home or self-care (01) ==
PROVIDERS: Emergency Provider Student in an Organized Health Care Education/Training Program; PCP Physician Assistant
DX: N76.0 Acute vaginitis (principal); R10.2 Pelvic and perineal pain
CPT/HCPCS: 81003; 81025; 87210; 99282; 99283

== ENCOUNTER → 2024-07-25 12:52 | Outpatient (CLI) | payer OTHER, SELFPAY | PROVIDERS: PCP Physician Assistant; Visit Provider Physician Assistant Surgical | DX: R35.0 Frequency of micturition (principal) | CPT/HCPCS: 87077; 87086; 87186 ==

== ENCOUNTER 2024-10-18 23:45 | Emergency (ER) | payer OTHER, SELFPAY ==
[2024-10-18 23:55] VITALS: BP 146/101; PULSE 74; RESP 18; TEMP 36.6; O2SAT 98; BMI 43.8
[2024-10-19] VITALS (8 sets, daily range): BP systolic 133–143; BP diastolic 73–97; PULSE 69–82; RESP 17–18; O2SAT 96–99
[2024-10-19 00:25] LABS: Add Manual Diff / Slide Review NO; Hematocrit 36.6 % (36-46); Hemoglobin 12.7 g/dL (12.0-16.0); Lymphocytes Absolute Auto 2700 /uL (1100-4500); Mean Corpuscular HGB Conc 34.7 % (30-36); Mean Corpuscular Hemoglobin 28.8 PG (26-34); Mean Corpuscular Volume 83.0 fL (80-100); Platelet Count 448 X10^3/uL (150-400)
[2024-10-19 00:28] LABS: Alanine Aminotransferase 28 IU/L (<35); Albumin 4.4 g/dL (3.5-5.0); Albumin Globulin Ratio 1.3 (1.0-2.8); Alkaline Phosphatase 64 U/L (38-126); Blood Urea Nitrogen 10 mg/dL (7-17); Calcium 9.7 mg/dL (8.4-10.2); Carbon Dioxide 28 mmol/L (22-32); Chloride 102 mmol/L (98-107); Estimated Glomerular Filt Rate > 60 mL/min (>60); Globulin 3.3 g/dL (1.7-4.1); Glucose 95 mg/dL (70-99); HEMOLYSIS < 15 (0-50); Lipase 60 U/L (23-300); Potassium 3.9 mmol/L (3.4-5.1); Sodium 136 mmol/L (137-145); Total Protein 7.7 g/dL (6.3-8.2)
--- NOTE | 2024-10-19 00:58 | DI.CT.S_ITS ---
PROCEDURE: CT ABDOMEN PELVIS W CON INDICATIONS: lower abd pain, n/v hx cerv+uterine CA TECHNIQUE: After the administration of intravenous contrast, axial sections acquired from the lung bases to the pubic symphysis. Coronal and sagittal reformats were performed. For radiation dose reduction, the following was used: automated exposure control, adjustment of mA and/or kV according to patient size. COMPARISON: [facility], CT, CT ABDOMEN PELVIS W CON, 08/24/2020, 17:10. FINDINGS: Image quality: Diagnostic. Lower Chest: No significant findings. ABDOMEN: Liver: No solid mass. Gallbladder: Absent. Dilated biliary ductule versus cystic duct within the gallbladder fossa. Biliary ducts: No biliary dilation. Pancreas: No ductal dilation. Spleen: Size is within normal limits. Adrenal Glands: No adrenal nodules. Kidneys and Ureters: No hydronephrosis. No solid mass. No complex renal cystic lesion which requires follow up. Small burden of punctate, nonobstructing nephrolithiasis. Stomach and Bowel: Normal colonic caliber, without significant wall thickening. Normal appendix. No significant diverticular disease. Peritoneum: No abnormal intraperitoneal fluid. No free air. Ventral Wall: Small supraumbilical hernia containing fat. The neck measures 1.6 cm and the sac measures 2.1 x 1.9 cm. Abdominal Nodes: No retroperitoneal or mesenteric adenopathy by size criteria. Vessels: Aorta and inferior vena cava are normal in size. PELVIS: Pelvic Organs: Hysterectomy. Bladder: No bladder wall thickening, accounting for underdistention. Pelvic Nodes: No enlarged lymph nodes. Miscellaneous: No inguinal hernias are seen. Bones: No aggressive osseous abnormality. IMPRESSION: No acute abnormality. Small burden of bilateral, punctate, nonobstructing nephrolithiasis. Normal appendix. Absent gallbladder. No significant diverticular disease. Dictated by: Jason Ng M.D. on 10/19/2024 at 1:51 Approved by: Jason Ng M.D. on 10/19/2024 at 1:53
[2024-10-19] MEDS: MORPHINE 4 MG/ML INJ IV (01:16)
[2024-10-19] MEDS: SODIUM CHLORIDE 0.9% 1,000 ML 1000 ML IV (01:16)
[2024-10-19] MEDS: ONDANSETRON 4 MG/2 ML INJ IV (01:17)
[2024-10-19 01:18] LABS: Lactate (Lactic Acid) 0.9 mmol/L (0.7-2.1); Magnesium 1.9 mg/dL (1.6-2.3)
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
== END 2024-10-19 02:57 | disposition home or self-care (01) ==
PROVIDERS: Emergency Provider Student in an Organized Health Care Education/Training Program; PCP Physician Assistant
DX: R10.30 Lower abdominal pain, unspecified (principal)
CPT/HCPCS: 36415; 74177; 80053; 81003; 83605; 83690; 83735; 85025; 96361; 96374; 96375; 99284; J2270; J2405; Q9967